=== PATIENT | male | born 2000 | race African-American/Black ===

== ENCOUNTER 2025-01-07 10:44 | Outpatient (OUT) | payer OTHER, SELFPAY ==
--- NOTE | 2025-01-07 11:11 | US_ITS ---
The [address] [address] Patient Name: FAUSTO PARRISH MRN: [id number] date: 2000 Sex: M Assigned Patient Location: [place] Current Patient Location: [place] Accession/Order Number: [id number] Exam Date: 01/07/2025 11:12 Report Date: 01/07/2025 11:55 At the request of: DMITRIY PEACOCK MD Procedure: US renal BI BILATERAL RENAL AND BLADDER ULTRASOUND CLINICAL HISTORY: Left flank pain for the past 4 months COMPARISON: None Estimation of renal size is approximately 9.1 cm on the right and 9.7 cm on the left. No shadowing calculi or hydronephrosis are identified. No renal mass lesions were imaged. There is no perinephric fluid. The urinary bladder is well distended with a volume of 564 mL. No contour or intraluminal abnormalities are seen. US/US renal BI IMPRESSION: NO OBSTRUCTIVE UROPATHY. Impression dictated by: Danielle Lewis M.D. 01/07/2025 11:55 AM Dictation Location: [place] [address] Electronically authenticated by: [id number] Y Date: 01/07/2025 11:55
[2025-01-08 11:09] LABS: FSH 5.9 mIU/mL (1.5-12.4)
== END 2025-01-07 10:45 | disposition home or self-care (01) ==
LOC: US 10:49
PROVIDERS: Visit Provider Urology
DX: R10.9 Unspecified abdominal pain (principal); Z31.69 Encounter for other general counseling and advice on procreation
CPT/HCPCS: 36415; 76775; 83001; 83002; 84403